=== PATIENT | male | born 1960 | race African-American/Black ===

== ENCOUNTER 2018-01-20 18:37 | Emergency (ER) | payer MEDICAID ==
[~2018-01-20] VITALS: Ht 185.4 cm; Wt 98.0 kg
[2018-01-20] MEDS ORDERED: SODIUM CHLORIDE 0.9% 1,000 ML IV ONE (20:45)
[2018-01-20 22:08] LABS: BASOPHILS % 0.5 % (0.0-2.0); EOSINOPHILS % 0.4 % (0.0-5.0); HEMATOCRIT. 43.9 % (42.0-52.0); HEMOGLOBIN. 14.4 g/dL (14.0-18.0); LYMPHOCYTES % 13.1 % (20.0-50.0); MEAN CORPUSCULAR HEMOGLOBIN 26.8 pg (28.0-32.0); MEAN CORPUSCULAR VOLUME 82.1 fL (80.0-94.0); MEAN PLATELET VOLUME 7.6 fl (7.4-10.4); MONOCYTES % 8.5 % (2.0-8.0); NEUTROPHILS % 77.5 % (40.0-76.0); PLATELET 310 x1000/uL (130-400); RED BLOOD CELL COUNT 5.35 mill/uL (4.7-6.1); RED CELL DISTRIBUTION WIDTH 15.1 % (11.6-14.6)
[2018-01-20 22:12] LABS: CHLORIDE 103 mEq/L (98-107)
[2018-01-20 22:16] LABS: ETHANOL BLOOD < 10 mg/dL
[2018-01-21 00:33] VITALS: BP 137/71
== END 2018-01-21 00:33 | disposition home or self-care (01) ==
LOC: ER 21:12
DX: R41.82 Altered mental status, unspecified (principal)
CPT/HCPCS: 36415; 70450; 80053; 82962; 85025; 93005; 96360; 99285; G0482; J7030; Z7610